=== PATIENT | female | born 1945 | race Caucasian/White ===

== ENCOUNTER → 2016-05-23 | Outpatient (CLI) | payer OTHER, BC | LOC: BHFA 11:30 | PROVIDERS: ATTEND Internal Medicine Cardiovascular Disease | DX: R06.09 Other forms of dyspnea (principal) ==

== ENCOUNTER → 2016-05-23 | Outpatient (CLI) | payer OTHER, BC ==
--- NOTE | 2016-05-23 13:25 | DX ---
Chest, PA and Lateral History: Trauma. Left-sided chest pain after running into a treadmill. Findings: No pneumothorax, pleural effusion, pulmonary contusion, mediastinal widening, or obvious ri b fracture is identified. Heart size and pulmonary vascularity are normal. There is mild tortuosity o f the descending thoracic aorta. Density overlying each kidney raises the possibility of bilateral ne phrolithiasis. There is a prominent thoracic kyphosis without any compression fractures. Left axillar y surgical clips and a left mastectomy defect are present and consistent with a previous history of l eft breast carcinoma. There are right chest wall surgical clips as well. There is no evidence for met astatic breast carcinoma. Impression: 1. Nothing acute identified in the left chest or associated with the left chest wall. 2. Possible bilateral nephrolithiasis. 3. No evidence for metastatic breast carcinoma. A message was left for Dr. Manjeet Lee at 1:22 pm.
== END ==
LOC: FIMAGING 12:52 → EDSTATUS 16:23
PROVIDERS: ATTEND Internal Medicine Cardiovascular Disease
DX: R07.89 Other chest pain (principal)

== ENCOUNTER → 2016-06-14 | Outpatient (CLI) | payer OTHER, BC | LOC: BRMIMAGING 14:33 | PROVIDERS: ATTEND Internal Medicine Cardiovascular Disease | DX: E04.2 Nontoxic multinodular goiter (principal) ==

== ENCOUNTER 2016-06-30 08:25 | Day surgery (SDC) | payer OTHER, BC ==
[2016-06-30] MEDS ORDERED: VERAPAMIL 5 MG/2 ML VIAL ONE (08:29)
[2016-06-30] MEDS ORDERED: MIDAZOLAM 2 MG/2 ML VIAL ONE (08:29)
[2016-06-30] MEDS ORDERED: fentaNYL 100 MCG/2 ML INJ ONE (08:29)
[2016-06-30] MEDS ORDERED: HEPARIN 10,000 UNIT/10 ML MDV ONE (08:29)
[2016-06-30] MEDS ORDERED: LIDOCAINE 1% 30 ML SDV ONE (08:29)
[2016-06-30] MEDS ORDERED: NS 1,000 ML IV ONE (08:30)
[2016-06-30] MEDS ORDERED: DIAZEPAM 5 MG TAB PO ONE (08:30)
[2016-06-30] MEDS ORDERED: IOPAMIDOL (ISOVUE-370) 150 ML BTL IV ONE (08:30)
[2016-06-30] MEDS ORDERED: diphenhydrAMINE 25 MG CAP PO ONE (08:30)
[2016-06-30] MEDS ORDERED: ASPIRIN EC 325 MG TAB PO ONE (08:30)
[2016-06-30] MEDS ORDERED: FAMOTIDINE 20 MG TAB PO ONE (08:30)
--- NOTE | 2016-06-30 08:50 | CPEKG ---
Heart Rate: 81 RR Interval: 741 P-R Interval: 164 QRSD Interval: 144 QT Interval: 468 QTC Interval: 544 P [place]: 74 QRS [place]: -43 T Wave [place]: 126 EKG Severity - ABNORMAL ECG - EKG Impression: SINUS RHYTHM EKG Impression: LEFT BUNDLE BRANCH BLOCK Electronically Signed By: Brayan Braden 30-Jun-2016 15:33:28
[2016-06-30 09:02] LABS: % IMMATURE GRANULYOCYTES 0.2 % (0.0-1.1); ABSOLUTE IMMATURE GRANULOCYTES 0.01 10^3/uL (0.00-0.10); ADD DIFF? NO; ADD MORPH? NO; ADD SCAN? NO; ATYPICAL LYMPHOCYTE FLAG 0 (0-99); FRAGMENT RBC FLAG 0 (0-99); HEMOGLOBIN 14.1 g/dL (12.6-16.3); LEFT SHIFT FLG 0 (0-99); LIPEMIA HEMOLYSIS FLAG 90 (0-99); MEAN CELL HEMOGLOBIN 32.5 pg (27.9-34.1); MEAN CELL HEMOGLOBIN CONCENTR. 34.4 g/dL (32.4-36.7); MEAN CELL VOLUME 94.5 fL (81.5-99.8); MEAN PLATELET VOLUME 9.9 fL (8.7-11.7); PLATELET CLUMPS FLAG 0 (0-99); PLATELET COUNT 234 10^3/uL (150-400); RED BLOOD CELL COUNT 4.34 10^6/uL (4.18-5.33); RED CELL DISTRIBUTION WIDTH 12.2 % (11.5-15.2)
[2016-06-30 09:26] LABS: INR 1.05 (0.83-1.16); PROTIME(PATIENT) 13.6 SEC (12.0-15.0)
[2016-06-30 09:29] LABS: ANION GAP 8 mEq/L (8-16); CALCIUM 9.3 mg/dL (8.5-10.4); CARBON DIOXIDE 28 mEq/l (22-31); CHLORIDE 103 mEq/L (97-110); CHOLESTEROL 237 mg/dL (140-220); CHOLESTEROL/HDL RATIO 2.86 RATIO (1.00-4.44); CREATININE 0.7 mg/dL (0.6-1.0); GLOMERULAR FILTRATION RATE > 60; GLUCOSE 112 mg/dL (70-100); HIGH DENSITY LIPOPROTEIN 83 mg/dL (40-85); LDL/HDL RATIO 1.65 RATIO (1.00-3.22); LOW DENSITY LIPOPROTEIN 137 mg/dL (80-100); MAGNESIUM 1.9 mg/dL (1.6-2.3); NON-HIGH DENSITY LIPOPROTEIN 154 mg/dL (90-129); POTASSIUM 3.6 mEq/L (3.5-5.2); SODIUM 139 mEq/L (134-144); TRIGLYCERIDE 87 mg/dL (35-135); VERY LOW DENSITY LIPOPROTEINS 17 mg/dL (8-25)
--- NOTE | 2016-06-30 12:16 | PDDXCAT ---
Diagnostic Cath Note - . Date: 06/30/16 Intervention: None *Procedure Access: right radial (a plethysmography trace assisted Cirilo's Test was used to document dual artery supply to the hand and index finger prior to access). Procedure: 1. selective coronary angiography 2. left heart catheterization 3. left ventriculogram Indication: Abnormal resting EKG, shortness of breath with moderate exertion ( which if equivalent to an anginal equivalent would be CCS Class II angina). The patient had an intermediate risk stress test (stress echocardiogram) which revealed sinus tachycardia with an interventricular conduction delay with a downsloping ST shift of > 2.0 mm in leads Lead II, Lead III, AVF, V 4, V 5, and V 6 ([place] Treadmill score of -2 consistent with an intermediate cardiovascular risk). The systolic wall motion was estimated to be normal. Her resting EKG was abnormal and revealed new abnormalities compared to a prior study that may be suggestive of ischemia. *Materials Left Heart Cath size: 5F Left Heart Cath materials: JL3.5, JR4.0, pigtail *Findings-Selective Coronary Angiography LM: 6 mm in size. Bifurcates into an LAD and circumflex system. No disease is identified. LAD: The proximal LAD is ~3.25 mm in size without evidence of flow-limiting disease and NATHALIE III flow throughout. LCX: The proximal left circumflex is ~3 mm in size. There is no evidence of flow -limiting coronary artery disease is NATHALIE III flow. RCA: The right coronary artery is dominant and ~3 mm in size. There is no evidence of flow-limiting disease with NATHALIE III flow throughout. *Findings-Left Heart Catheterization EDP: 25 mmHg LVEF: 50% Wall motion analysis: Mild global hypokinesis on left ventriculogram. The visualized portion of the thoracic aorta appears normal in size without hanna evidence of aneurysm or dissection. There is 3+ MR which may be secondary to catheter injection. *Summary Complications: None Estimated blood loss: <50ml Closure method: TR Band Assessment/Conclusion: 1. No evidence of flow-limiting coronary artery disease or plaque in the coronary circulation suggestive of coronary artery disease 2. Low-normal ejection fraction at 50% with mild global hypokinesis 3. 3+ mitral regurgitation on left ventriculogram, although this may be secondary pressurized injection A cause for the patient's dyspnea with exertion is not identified on the basis of this study. Her EKG abnormalities at rest and with exercise do not appear to be ischemic in origin. I ordered an echocardiogram to gauge the severity of her mitral regurgitation. On Doppler, the mitral regurgitation was rated as mild and there was moderate tricuspid regurgitation. There was mild global hypokinesis with an ejection fraction estimated to be 45-50%. The patient should have a periodic echocardiogram every 2-3 years to evaluate her LV function and track the severity of the mitral regurgitation.
--- NOTE | 2016-06-30 13:57 | ECHO ---
[id number] + + [address] : : [place] [address] : : [phone] + + Adult Echocardiographic Report + + :Name: EMMETT ISIDRO Study Date: 06/30/2016 12:16 PM : : Hospital Admission Number: [id number] : :: 1945 Gender: Female : :Age: 70 yrs Race: WH : :Reason For Study: Eval MR : + + MMode/2D Measurements \T\ Calculations RVDd: 3.4 cm LVOT diam: 2.0 cm LVLd ap4: 7.2 cm SV(MOD-sp4): 23.0 ml EDV(MOD-sp4): 63.0 ml LVOT area: 3.2 cm2 LVLs ap4: 6.4 cm ESV(MOD-sp4): 40.0 ml EF(MOD-sp4): 36.5 % Normal Measurement Values: + + :LVIDd (3.5-5.7cm) IVSd (0.6-1.1cm) LVPWd (0.6-1.1cm) Aortic Root (2.0-3.7cm)Left Atrium (1.5-4.0cm): :LV Vol(d) (76-115ml) LV Vol(s) (29-48ml) Ejec Fraction (50-65%)PV Han (0.6- 1.2m/s) TV Han (0.4-1.0m/s) : :MV E Han (0.8-1.0m/s)MV A Han (0.3-1.0m/s)LVOT Han (0.7-1.2m/s) Asc Ao Han ( 0.9-1.8m/s) : + + Doppler Measurements \T\ Calculations MV E max han: MV V2 max: Ao V2 max: LV V1 max: 47.3 cm/sec 110.9 cm/sec 110.0 cm/sec 72.7 cm/sec MV A max han: MV max PG: Ao max PG: LV V1 max P.7 cm/sec 4.9 mmHg 4.8 mmHg 2.1 mmHg MV E/A: 0.55 MV V2 mean: Ao mean PG: LV V1 mean PG: MV dec time: 68.6 cm/sec 1.8 mmHg 0.95 mmHg 0.22 sec MV mean PG: Ao V2 mean: LV V1 mean: 2.1 mmHg 61.7 cm/sec 45.9 cm/sec MV V2 VTI: 21.3 cmAo V2 VTI: 18.2 cm LV V1 VTI: 14.1 cm MVA(VTI): 2.1 cm2 ALICIA(I,D): 2.5 cm2 ALICIA(V,D): 2.1 cm2 MR max han: SV(LVOT): 45.7 ml PA V2 max: TR max han: 374.9 cm/sec 105.3 cm/sec 221.5 cm/sec MR max PG: PA max PG: TR max P.3 mmHg 4.4 mmHg 19.6 mmHg RAP systole: 10.0 mmHg RVSP(TR): 29.6 mmHg Left Ventricle The left ventricle is normal in size. There is normal left ventricular wall thickness. Ejection Fraction = 45-50%. There is Doppler evidence for diastolic dysfunction. There is mild global hypokinesis of the left ventricle. Right Ventricle The right ventricle is normal in size and function. Atria The left atrial size is normal. The right atrium is borderline dilated. The interatrial septum is intact with no evidence for an atrial septal defect. Mitral Valve The mitral valve is normal in structure and function. There is no mitral valve stenosis. There is mild mitral regurgitation. Tricuspid Valve The tricuspid valve is normal in structure and function. There is no tricuspid stenosis. There is moderate tricuspid regurgitation. Right ventricular systolic pressure is 29.6mmHg. Right ventricular systolic pressure is normal. Aortic Valve The aortic valve is not well visualized. There is no aortic stenosis. There is no aortic insufficiency. Pulmonic Valve The pulmonic valve is not well visualized. There is no pulmonic valvular stenosis. There is no pulmonic valvular regurgitation. Conclusion A complete two-dimensional transthoracic echocardiogram was performed (2D, M-mode, Doppler and color flow Doppler). The study was technically difficult. No parasternal windows; Long axis views taken from subcostals. The left ventricle is normal in size. Ejection Fraction = 45-50%. There is Doppler evidence for diastolic dysfunction. There is mild global hypokinesis of the left ventricle. There is mild mitral regurgitation. There is moderate tricuspid regurgitation. Right ventricular systolic pressure is 29.6mmHg. Right ventricular systolic pressure is normal. The aortic valve is not well visualized. Final Reading Physician: López Nash signed on 06/30/2016 01:56 PM Ordering Physician: Deniz Catalan Performed By: Vernell Rodriguez
== END 2016-06-30 15:05 | disposition home or self-care (01) ==
LOC: FCATH 08:25
PROVIDERS: ATTEND Internal Medicine Cardiovascular Disease
PROC: 4A023N7 Measurement of Cardiac Sampling and Pressure, Left Heart, Percutaneous Approach (ICD-10-PCS; principal; 2016-06-30)
PROC: B2151ZZ Fluoroscopy of Left Heart using Low Osmolar Contrast (ICD-10-PCS; principal; 2016-06-30)
PROC: B2111ZZ Fluoroscopy of Multiple Coronary Arteries using Low Osmolar Contrast (ICD-10-PCS; principal; 2016-06-30)
DX: I08.1 Rheumatic disorders of both mitral and tricuspid valves (principal); I44.7 Left bundle-branch block, unspecified; Z85.3 Personal history of malignant neoplasm of breast; G25.0 Essential tremor; E21.3 Hyperparathyroidism, unspecified; R06.02 Shortness of breath
CPT/HCPCS: J1644; J2250; J3010; Q9967

== ENCOUNTER → 2018-01-18 | Outpatient (CLI) | payer OTHER, MEDICARE | LOC: FIMAGING 10:21 | DX: Z13.820 Encounter for screening for osteoporosis (principal); M81.0 Age-related osteoporosis without current pathological fracture; Z85.3 Personal history of malignant neoplasm of breast; Z78.0 Asymptomatic menopausal state ==

== ENCOUNTER → 2018-01-31 | Outpatient (CLI) | payer OTHER | LOC: BRMIMAGING 14:31 | PROVIDERS: ATTEND Internal Medicine | DX: N20.0 Calculus of kidney (principal); N13.30 Unspecified hydronephrosis; N28.89 Other specified disorders of kidney and ureter; Z87.448 Personal history of other diseases of urinary system; Z87.442 Personal history of urinary calculi | CPT/HCPCS: 76770-PO ==

== ENCOUNTER → 2018-01-31 | Outpatient (CLI) | payer OTHER ==
[~2018-01-31] MED LIST: IOPAMIDOL (ISOVUE 370) 100 ML BTL IV ONE; IOPAMIDOL (ISOVUE-300) 100 ML BTL ONE; IOPAMIDOL (ISOVUE-300) 150 ML BTL ONE
== END ==
LOC: FIMAGING 17:37
PROVIDERS: ATTEND Internal Medicine
DX: N28.89 Other specified disorders of kidney and ureter (principal); N20.2 Calculus of kidney with calculus of ureter; N13.30 Unspecified hydronephrosis; N28.1 Cyst of kidney, acquired
CPT/HCPCS: 74178; Q9967

== ENCOUNTER 2018-03-20 09:53 | Day surgery (SDC) | payer OTHER, BC ==
[2018-03-20] MEDS ORDERED: MEPERIDINE 25 MG/ML SYR IVP PRN (10:20)
[2018-03-20] MEDS ORDERED: FLUMAZENIL 0.5 MG/5 ML MDV IVP PRN (10:20)
[2018-03-20] MEDS ORDERED: fentaNYL 100 MCG/2 ML INJ IVP PRN (10:20)
[2018-03-20] MEDS ORDERED: MIDAZOLAM 2 MG/2 ML VIAL IVP PRN (10:20)
[2018-03-20] MEDS ORDERED: NALOXONE HCL 0.4 MG/ML INJ IVP PRN (10:20)
[2018-03-20] MEDS ORDERED: NS 1,000 ML IV SCH (10:30)
[2018-03-20] MEDS ORDERED: LIDOCAINE 1% 300 MG/30 ML SDV ONE (11:47)
[2018-03-20] MEDS ORDERED: IOPAMIDOL (ISOVUE-300) 100 ML BTL ONE (12:21)
[2018-03-20] MEDS ORDERED: ONDANSETRON 4 MG/2 ML VIAL IVP PRN (13:09)
[2018-03-20] MEDS ORDERED: OXYCODONE/APAP 5/325 TAB PO PRN (13:09)
[2018-03-20] MEDS ORDERED: ACETAMINOPHEN 325 MG TAB PO PRN (13:09)
--- NOTE | 2018-03-20 13:10 | PDRADPRE ---
Radiology History & Physical Indication for procedure: other (renal mass) Home medications: CO Q-10 30 mg PO DAILY 06/30/16 [Last Taken 03/19/18] Centrum Silver Women Tablet 06/30/16 [Last Taken 03/19/18] Hydrochlorothiazide 25 mg PO DAILY 06/30/16 [Last Taken 03/19/18] Letrozole 2.5 mg PO ONCE 06/30/16 [Last Taken 03/20/18] [place] 3 1,000 mg Softgel 06/30/16 [Last Taken 03/19/18] Potassium Citrate/Citric Acid 1,620 mg PO 06/30/16 [Last Taken 03/19/18] Super B Complex 06/30/16 [Last Taken 03/19/18] Tumeric 1,000 mg PO 06/30/16 [Last Taken 03/19/18] VITAMIN D 06/30/16 [Last Taken 03/19/18] Vitamin C 06/30/16 [Last Taken 03/19/18] Crestor 5 mg PO DAILY 03/16/18 [Last Taken 03/19/18] Magnesium 400 mg PO DAILY 03/16/18 [Last Taken 03/19/18] Allergies/Adverse Reactions: clindamycin Allergy (Verified 06/30/16 08:29) Mental status: A&Ox3
--- NOTE | 2018-03-20 13:10 | PDPROPOC ---
Sedation Plan of Care ASA Classification: ASA 2 Mallampati Score: Class 2 Mallampati Reference Image:
--- NOTE | 2018-03-20 13:11 | PDRADPN ---
Radiology Procedure Note Date of Procedure: 03/20/18 Radiologist: Parker Wan Anesthesia: IV Sedation Pre-op Diagnosis: renal mass Post-op Diagnosis: same Procedure: ct guided biopsy Inf/Abcess present in the surg proc area at time of surgery?: No
[2018-03-20 19:00] VITALS: BP 127/64
== END 2018-03-20 18:58 | disposition home or self-care (01) ==
LOC: FIMAGING 09:53
PROVIDERS: ATTEND Specialist
PROC: 0TB03ZX Excision of Right Kidney, Percutaneous Approach, Diagnostic (ICD-10-PCS; principal; 2018-03-20 13:19)
DX: C64.1 Malignant neoplasm of right kidney, except renal pelvis (principal)
CPT/HCPCS: J2250; J2310; J3010; Q9967